=== PATIENT | male | born 1985 | race Caucasian/White ===

== ENCOUNTER 2018-07-29 07:12 | Emergency (ER) | payer BC ==
[2018-07-29] MEDS ORDERED: NS 0.9% 1000 ML* 1,000 ML IV ONE (08:15)
[2018-07-29] MEDS ORDERED: Ondansetron INJ* 2 MG/ML VIAL IV ONE (08:15)
--- NOTE | 2018-07-29 08:30 | ED ---
Influenza-Like Illness - HPI Summary HPI Summary: Patient presents with 4 day history of influenza-like symptoms. Reports he started with "not feeling right" and dry cough. The following day developed nausea with vomiting and has not been able to hold much down since. He's urinated 2 times since Friday. Loose stool yesterday. Starting to get a cramp one of his legs. He tries to drink liquids such as Jade Jessie and water however these do come up eventually. He denies triston abdominal pain however has developed some soreness from vomiting. Fever but has not been able to take ibuprofen or Tylenol this morning due to lack of PO tolerance. 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 Up-to- date with immunizations except for influenza. Lives alone however is occasionally exposed to secondhand smoke at his mom's house. Otherwise healthy male without medical history nor routine medications. - History of Current Complaint Chief Complaint: EDFluSymptoms Time Seen by Provider: 07/29/18 07:38 Hx Obtained From: Patient - Allergy/Home Medications Allergies/Adverse Reactions: Allergies Allergy/AdvReac Type Severity Reaction Status Date / Time No Known Allergies Allergy Verified 07/29/18 07:27 PMH/Surg Hx/FS Hx/Imm Hx Previously Healthy: Yes Endocrine/Hematology History: Denies: Autoimmune Disease Cardiovascular History: Denies: Hx Congenital Heart Disease, Hx Hypertension Respiratory History: Reports: Hx Asthma - as a child - exposed to 2nd hand smoke then - Immunization History Immunizations Up to Date: Yes - EXCEPT influenza Infectious Disease History: No Infectious Disease History: Denies: Traveled Outside the [place] in Last 30 Days - Family History Known Family History: Positive: Other - mom- smokes - Social History 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 Negative: Abdominal Pain Genitourinary: Negative Musculoskeletal: Other - muscle cramp Skin: Negative Psychological: Normal All Other Systems Reviewed And Are Negative: Yes Physical Exam Triage Information Reviewed: Yes Vital Signs On Initial Exam: Initial Vitals Temp Pulse Resp BP Pulse Ox 98.8 F 102 20 106/70 97 07/29/18 07:25 07/29/18 07:25 07/29/18 07:25 07/29/18 07:25 07/29/18 07:25 Vital Signs Reviewed: Yes Appearance: Positive: No Pain Distress, Well-Nourished - thin but appears to be fit, Ill-Appearing - appears mildly fatigued Skin: Positive: Warm, Skin Color Reflects Adequate Perfusion, Dry - no rash Head/Face: Positive: Normal Head/Face Inspection Eyes: Positive: Normal, EOMI, Conjunctiva Clear. Negative: Conjunctiva Inflammed, Discharge ENT: Positive: Hearing grossly normal, Pharyngeal erythema - mild, Nasal drainage, TMs normal, Tonsillar swelling - +1-2, Uvula midline. Negative: Nasal congestion, Tonsillar exudate, Trismus, Muffled voice, Hoarse voice, Sinus tenderness Neck: Positive: Supple, Nontender, No Lymphadenopathy Respiratory/Lung Sounds: Positive: Clear to Auscultation, Breath Sounds Present. Negative: Rales, Rhonchi, Wheezes Cardiovascular: Positive: Normal, RRR, S1, S2. Negative: Murmur, Rub Abdomen Description: Positive: Guarding, Other: - mild epigastric TTP - gaurding along upper ab - soft and NTTP in lower ab Bowel Sounds: Positive: Present Musculoskeletal: Positive: Normal, Strength/ROM Intact Neurological: Positive: Normal, Sensory/Motor Intact, Alert, Oriented to Person Place, Time, CN Intact II-III Psychiatric: Positive: Normal - [place] Coma Scale Best Eye Response: 4 - Spontaneous Best Motor Response: 6 - Obeys Commands Best Verbal Response: 5 - Oriented Coma Scale Total: 15 Diagnostics - Vital Signs Vital Signs Temp Pulse Resp BP Pulse Ox 07/29/18 07:25 98.8 F 102 20 106/70 97 - Laboratory Result Diagrams: 07/29/18 08:22 07/29/18 08:22 Lab Statement: Any lab studies that have been ordered have been reviewed, and results considered in the medical decision making process. Re-Evaluation - Re-Evaluation First Eval Change: Improved - feels much better s/p 2L IVF - nausea resolved - will PO challenge Second Eval Change: Improved - tolerated PO challenge w/o vomiting or pain Flu Symptom Course/Dx - Course Course Of Treatment: all labs and flu neg - better w/ rehydration - Diagnoses Provider Diagnoses: Viral infection, Dehydration Discharge - Sign-Out/Discharge Documenting (check all that apply): Patient Departure - Discharge Plan Condition: Stable Disposition: HOME Prescriptions: Ondansetron ODT TAB* [Zofran 4 MG Odt TAB*] 8 mg PO Q8H PRN #9 tab.odt PRN Reason: Nausea Patient Education Materials: Dehydration (ED), Viral Syndrome (ED) Additional Instructions: Follow-up with PCP in [place] if symptoms persist, no improvement Return to ED if worse - Billing Disposition and Condition Condition: STABLE Disposition: Home
[2018-07-29] MEDS: NS 0.9% 1000 ML* 2,000 ML IV ONE (08:32)
[2018-07-29 08:34] LABS: Hematocrit 43 % (42-52); Hemoglobin 14.5 g/dl (14.0-18.0); Mean Corpuscular HGB Conc 34 g/dl (31-36); Mean Corpuscular Hemoglobin 28 pg (27-31); Mean Corpuscular Volume 84 fL (80-94); Platelet Count 216 10^3/ul (150-450); Red Blood Count 5.11 10^6/ul (4.00-5.40); Red Cell Distribution Width 14 % (10.5-15); White Blood Count 9.1 10^3/ul (3.5-10.8)
[2018-07-29 08:44] LABS: Activated Partial Thrombo Time 35.7 seconds (26.0-36.3); INR 1.17 (0.77-1.02)
[2018-07-29 08:52] LABS: Albumin 4.3 g/dL (3.2-5.2); Albumin/Globulin Ratio 1.5 (1-3); BUN/Creatinine Ratio 19.4 (8-20); C Reactive Protein 28.62 mg/L (<8.01); Calcium 8.9 mg/dL (8.6-10.3); EGFR Non-African American 82.2 (>60); Globulin 2.8 g/dL (2-4); Magnesium 2.1 mg/dL (1.9-2.7); Potassium 3.9 mmol/L (3.5-5.0); Total Bilirubin 0.5 mg/dL (0.2-1.0); Total Protein 7.1 g/dL (6.4-8.9)
[2018-07-29 09:12] LABS: ABS Basophils 0 10^3/ul (0-0.2); ABS Eosinophils 0 10^3/ul (0-0.6); ABS Lymphocytes 0.9 10^3/ul (1.0-4.8); ABS Monocytes 1.8 10^3/ul (0-0.8); ABS Neutrophils 6.4 10^3/ul (1.5-7.7); ABS Nucleated RBC 0 10^3/ul; Eosinophil % 0.1 %; Nucleated Red Blood Cells % 0
[2018-07-29 11:46] VITALS: BP 107/68
== END 2018-07-29 11:44 | disposition home or self-care (01) ==
LOC: ED 07:12
DX: B34.9 Viral infection, unspecified (principal); E86.0 Dehydration
CPT/HCPCS: 36415; 80053; 83605; 83690; 83735; 85025; 85610; 85730; 86140; 87040; 96361; 96374; 99283; J2405